=== PATIENT | female | born 1995 | race Asian ===

== ENCOUNTER 2020-03-08 01:42 | Emergency (ER) | payer OTHER ==
[~2020-03-08] VITALS: Ht 154.9 cm; Wt 40.9 kg
[2020-03-08] MEDS ORDERED: IBUPROFEN 600 MG TABLET PO ONE (02:00)
[2020-03-08] MEDS ORDERED: ACETAMINOPHEN/CODEINE 300-30 MG TABLET PO ONE (02:00)
[2020-03-08 02:45] VITALS: BP 119/67
== END 2020-03-08 02:51 | disposition home or self-care (01) ==
LOC: EMS 01:44
DX: T21.14XA Burn of first degree of lower back, initial encounter (principal); T31.0 Burns involving less than 10% of body surface; X98.1XXA Assault by hot tap water, initial encounter; Y93.89 Activity, other specified; Y92.89 Other specified places as the place of occurrence of the external cause; Y99.8 Other external cause status